=== PATIENT | male | born 1945 | race Caucasian/White ===

== ENCOUNTER 2017-07-22 11:38 | Outpatient (CLI) | payer MEDICARE, BC ==
[2017-07-22 13:03] LABS: Bilirubin Negative (Negative); Blood, Urine Negative (Negative); Glucose, Urine (Dipstick) Negative (Negative); Ketone, Urine Negative (Negative); Nitrite Negative (Negative); Protein, Urine (Dipstick) Negative (Neg-Trace); Red Blood Cell (RBC) Count 4.83 mill/uL (4.70-6.10); Urobilinogen 0.2 mg/dL (0.2-1.0); White Blood Cell (WBC) Count 10.7 thou/uL (4.8-10.8)
[2017-07-22 13:06] LABS: Bacteria/HPF None Seen HPF (None Seen); Hyaline Casts/LPF 0-3 HYALINE CAST LPF (0-3 Hyaline); Squamous Epithelial 0-3 HPF (0-3); WBC/HPF 0-3 HPF (0-3)
[2017-07-22 13:10] LABS: PTT 26.2 SEC (22.9-36.1); Prothrombin Time 13.2 SEC (12.0-14.7)
--- NOTE | 2017-07-22 13:30 | EKG ---
Test Reason : Blood Pressure : / mmHG Vent. Rate : 057 BPM Atrial Rate : 057 BPM P-R Int : 236 ms QRS Dur : 086 ms QT Int : 420 ms P-R-T Axes : 048 -18 018 degrees QTc Int : 408 ms Sinus bradycardia with 1st degree A-V block Nonspecific ST-T changes Abnormal ECG When compared with ECG of 06-JAN-2017 11:15, ST no longer elevated in Inferior leads Confirmed by DR. Gary STORY ([id number]) on 07/22/2017 1:30:13 PM Referred By: JUAN Confirmed By:DR. Gary STORY
[2017-07-22 13:32] LABS: Anion Gap 13 mmol/L (10-20); BUN (Urea Nitrogen) 21 mg/dL (8.4-25.7); Calc. Creatinine Clearance 0 mL/min (70-130); Calcium 9.7 mg/dL (7.8-10.44); Carbon Dioxide 28 mmol/L (23-31); Chloride 103 mmol/L (98-107); Estimated GFR-MDRD 78
== END 2017-07-22 11:39 | disposition home or self-care (01) ==
LOC: LABBT 11:38
PROVIDERS: ATTEND Urology
DX: Z01.818 Encounter for other preprocedural examination (principal); N35.8 Other urethral stricture
CPT/HCPCS: 80048; 81001; 85027; 85610; 85730; 87086; 93005; 93010

== ENCOUNTER 2017-07-30 09:26 | Day surgery (SDC) | payer MEDICARE, BC ==
[2017-07-22 11:54] VITALS: BMI 27.4
[2017-07-30] MEDS ORDERED: Levofloxacin 500 mg/D5W 100 ml Premix Bag ONE (10:36)
[2017-07-30] MEDS ORDERED: Fentanyl 100 MCG/2 ML VIAL ONE (12:09)
[2017-07-30] MEDS ORDERED: Propofol 200 MG/20 ML VIAL ONE (12:27)
[2017-07-30] MEDS ORDERED: ePHEDrine/0.9% NaCl/PF SYRINGE 50 mg/10 ml ONE (12:27)
[2017-07-30] MEDS ORDERED: Dexamethasone 20 MG/5 ML VIAL ONE (12:27)
[2017-07-30] MEDS ORDERED: Lidocaine 2% MPF 10 ML AMP (For Epidural Use) ONE (12:27)
[2017-07-30] MEDS ORDERED: Ondansetron HCl/PF 4 MG/2 ML Vial ONE (12:27)
[2017-07-30] MEDS ORDERED: PHENYLEPHRINE-NS 100 MCG/ML 10 ML SYRINGE ONE (12:27)
--- NOTE | 2017-07-30 13:18 | OP ---
DATE OF PROCEDURE: 07/30/2017 SURGEON: Sae Alexis M.D. PREOPERATIVE DIAGNOSIS: Membranous urethral stricture. POSTOPERATIVE DIAGNOSIS: Membranous urethral stricture. PROCEDURE PERFORMED: Cystoscopy with direct vision internal urethrotomy using a balloon dilator. INDICATIONS FOR PROCEDURE: Mr. Narvaez is a 72-year-old white male who has a history of TURP. He e xperienced recurrent voiding difficulties and on cystoscopy, he was found to have membranous urethra l stricture. He is now coming back in for dilation of the stricture. Risks and benefits of the pro cedure have been discussed and he has agreed to proceed forward. DESCRIPTION OF PROCEDURE: After identification of armband and verification of consent, the patient was brought back to the operating room where he underwent general anesthesia with LMA. He was place d in a dorsal lithotomy position and prepped and draped in usual sterile fashion. After appropriate timeout, a lubricated 22 Egyptian rigid cystoscope was introduced per urethra to the level of the str icture. An Amplatz Super Stiff wire was passed through the stricture into the bladder under direct vision. A NephroMax balloon dilator was advanced through the cystoscope to be positioned across the urethral stricture. The balloon was inflated to 14 atmospheres for a 30-Egyptian dilation and 12 cm length. This was held in place for approximately 30-40 seconds at which time it was deflated and th e balloon dilator removed leaving the wire in place. This showed excellent opening of the stricture with no residuals, stricturing or narrowing. The prostate was wide open from TURP and has been wel l healed. The bladder looked normal without tumors, stones or any other concerning abnormalities. The cystoscope was then removed leaving the wire in place. A 16 Egyptian Councill-tip wire was then a dvanced over the Amplatz Super Stiff wire into the bladder. The wire was then removed and 10 mL of sterile water placed into the balloon. This was connected to a drainage bag with a StatLock. The p atient was then taken out of lithotomy, awakened and taken to PACU for recovery in stable condition. COMPLICATIONS: None. ESTIMATED BLOOD LOSS: Minimal. RETAINED TUBES AND DRAINS: A 16 Egyptian Enriquez catheter. SPECIMENS: None. DISPOSITION: The patient will be discharged home and follow up with me in approximately 5 days for a voiding trial.
== END 2017-07-30 15:15 | disposition home or self-care (01) ==
LOC: SDC 09:26
PROVIDERS: ATTEND Urology
PROC: 0T7D8ZZ Dilation of Urethra, Via Natural or Artificial Opening Endoscopic (ICD-10-PCS; principal; 2017-07-30)
DX: N35.8 Other urethral stricture (principal); E78.5 Hyperlipidemia, unspecified; J45.909 Unspecified asthma, uncomplicated; Z88.7 Allergy status to serum and vaccine; Z79.82 Long term (current) use of aspirin; Z79.899 Other long term (current) drug therapy; Z90.79 Acquired absence of other genital organ(s); Z87.891 Personal history of nicotine dependence
CPT/HCPCS: 52276; C1758; C1769; J1100; J1170; J1956; J2001; J2405; J2704; J3010

== ENCOUNTER 2021-08-14 10:56 | Outpatient (CLI) | payer MEDICARE, BC | END 2021-08-14 10:57 | disposition home or self-care (01) | LOC: BICCT 10:56 | PROVIDERS: ATTEND Student in an Organized Health Care Education/Training Program | DX: R13.10 Dysphagia, unspecified (principal) | CPT/HCPCS: 70491; 82565 ==

== ENCOUNTER 2021-08-16 11:07 | Outpatient (CLI) | payer MEDICARE, BC ==
[2021-08-16 19:20] LABS: SARS-CoV-2 PCR by NAA Not Detected (NotDetected)
== END 2021-08-16 11:08 | disposition home or self-care (01) ==
LOC: LABBT 11:07
PROVIDERS: ATTEND Family Medicine
DX: Z01.812 Encounter for preprocedural laboratory examination (principal); Z20.822 Contact with and (suspected) exposure to COVID-19
CPT/HCPCS: U0003; U0005

== ENCOUNTER 2021-08-19 09:46 | Outpatient (CLI) | payer MEDICARE, BC | END 2021-08-19 09:47 | disposition home or self-care (01) | PROVIDERS: ATTEND Student in an Organized Health Care Education/Training Program | DX: I69.191 Dysphagia following nontraumatic intracerebral hemorrhage (principal); R13.12 Dysphagia, oropharyngeal phase; R13.13 Dysphagia, pharyngeal phase; R63.30 Feeding difficulties, unspecified | CPT/HCPCS: 74230 ==